=== PATIENT | male | born 1955 | race Caucasian/White ===

== ENCOUNTER 2018-02-14 20:37 | Emergency (ER) | payer MEDICARE, MEDICAID ==
[2018-02-15 00:17] LABS: URINE PH (Dip) POC 6.5 (5.0-8.5)
[2018-02-15 00:17] LABS: URINE BLOOD (Dip) POC Negative (NEGATIVE); URINE GLUCOSE (Dip) POC Negative (NEGATIVE); URINE KETONES (Dip) POC Negative (NEGATIVE); URINE LEUKOCYTE EST (Dip) POC Negative (NEGATIVE); URINE NITRITE (Dip) POC Negative (NEGATIVE); URINE TOTAL PROTEIN POC Negative (NEGATIVE)
[2018-02-15 00:35] LABS: ADD UMIC NO; UR ASCORBIC ACID 40 mg/dL (NEGATIVE); UR BILIRUBIN (Dip) NEGATIVE (NEGATIVE); UR BLOOD (Dip) NEGATIVE (NEGATIVE); UR CLARITY CLEAR (CLEAR); UR COLOR YELLOW (YELLOW); UR GLUCOSE (Dip) NEGATIVE (NEGATIVE); UR KETONES (Dip) NEGATIVE (NEGATIVE); UR LEUKOCYTE ESTERASE (Dip) NEGATIVE Leu/ul (NEGATIVE); UR NITRITE (Dip) NEGATIVE (NEGATIVE); UR TOTAL PROTEIN (Dip) NEGATIVE (NEGATIVE); UR UROBILINOGEN (Dip) NEGATIVE (NEGATIVE)
== END 2018-02-15 03:32 | disposition home or self-care (01) ==
LOC: E/R 02-15 03:32
DX: R60.0 Localized edema (principal); I10 Essential (primary) hypertension; R40.2142 Coma scale, eyes open, spontaneous, at arrival to emergency department; R40.2252 Coma scale, best verbal response, oriented, at arrival to emergency department; R40.2362 Coma scale, best motor response, obeys commands, at arrival to emergency department
CPT/HCPCS: 81003; 87086; 93970; 99284-25

== ENCOUNTER 2018-02-26 16:55 | Inpatient (IN) | payer MEDICARE, MEDICAID ==
[2018-02-26] MEDS: SOD CHLORIDE 0.9% 500 ML IV (20:03)
[2018-02-26 20:30] LABS: ADD MAN DIFF? NO
[2018-02-26 20:33] LABS: BASOPHIL # 0.1 10^3/ul (0.0-0.1); BASOPHILS % 0.7 % (0.0-2.0); EOSINOPHILS # 0.2 10^3/ul (0.0-0.5); EOSINOPHILS % 1.9 % (0.0-7.0); HEMOGLOBIN 14.8 g/dl (14.0-18.0); LYMPHOCYTES # 1.5 10^3/ul (0.8-2.9); MEAN CORPUSCULAR HGB CONC 32.9 g/dl (32.0-37.0); MEAN CORPUSCULAR VOLUME 91.3 fl (82.0-101.0); MEAN PLATELET VOLUME 9.3 fl (7.4-10.4); MONOCYTE # 0.7 10^3/ul (0.3-0.9); MONOCYTES % 7.7 % (0.0-11.0); NEUTROPHIL # 6.4 10^3/ul (1.6-7.5); NEUTROPHILS % 72.4 % (39.0-77.0); PLATELET COUNT 243 10^3/UL (140-415); RED BLOOD COUNT 4.93 10^6/ul (4.70-6.10); RED CELL DISTRIBUTION WIDTH 14.1 % (11.5-14.5)
[2018-02-26 20:33] LABS: WHITE BLOOD COUNT 8.8 10^3/ul (4.8-10.8)
[2018-02-26 20:52] LABS: INR 1.04; PROTIME 13.7 Sec (11.9-14.9); PT RATIO 1.1
[2018-02-26 20:53] LABS: ANION GAP 17 (8-16); BLOOD UREA NITROGEN 18 mg/dl (7-20); CALCIUM 9.8 mg/dl (8.4-10.2); CARBON DIOXIDE 28 mmol/L (21-31); CHLORIDE 103 mmol/L (97-110); CREATINE KINASE 118 IU/L (23-200); CREATININE 1.11 mg/dl (0.61-1.24); GLUCOSE 127 mg/dl (70-220); POTASSIUM 4.6 mmol/L (3.5-5.1); SODIUM 143 mmol/L (135-144)
[2018-02-26] MEDS ORDERED: APIXABAN 5 MG TABLET PO (21:00)
[2018-02-26 21:09] LABS: TROPONIN-I < 0.012 ng/ml (0.00-0.12)
[2018-02-26] MEDS: APIXABAN 5 MG TABLET PO (22:44)
[2018-02-26] MEDS ORDERED: ACETAMINOPHEN 325 MG TAB PO (23:00)
[2018-02-26] MEDS ORDERED: ONDANSETRON 4 MG INJ IV (23:00)
[2018-02-27] MEDS ORDERED: ONDANSETRON 4 MG INJ IV (01:00)
[2018-02-27] MEDS ORDERED: morphine 2 MG INJ IV (01:00)
[2018-02-27 05:03] LABS: ADD MAN DIFF? NO
[2018-02-27 05:05] LABS: BASOPHILS % 0.6 % (0.0-2.0); EOSINOPHILS # 0.2 10^3/ul (0.0-0.5); EOSINOPHILS % 2.9 % (0.0-7.0); HEMATOCRIT 38.4 % (42.0-52.0); HEMOGLOBIN 12.7 g/dl (14.0-18.0); LYMPHOCYTES # 1.4 10^3/ul (0.8-2.9); LYMPHOCYTES % 22.6 % (15.0-51.0); MEAN CORPUSCULAR HEMOGLOBIN 30.2 pg (29.0-33.0); MEAN CORPUSCULAR HGB CONC 33.1 g/dl (32.0-37.0); MEAN CORPUSCULAR VOLUME 91.4 fl (82.0-101.0); MEAN PLATELET VOLUME 9.1 fl (7.4-10.4); MONOCYTE # 0.6 10^3/ul (0.3-0.9); MONOCYTES % 10.2 % (0.0-11.0); NEUTROPHIL # 3.9 10^3/ul (1.6-7.5); NEUTROPHILS % 63.2 % (39.0-77.0); PLATELET COUNT 211 10^3/UL (140-415)
[2018-02-27 05:05] LABS: WHITE BLOOD COUNT 6.2 10^3/ul (4.8-10.8)
[2018-02-27 05:21] LABS: HEMOGLOBIN A1C 5.6 % (0-5.9)
[2018-02-27 05:36] LABS: ANION GAP 11 (8-16); BLOOD UREA NITROGEN 17 mg/dl (7-20); CALCIUM 9.1 mg/dl (8.4-10.2); CARBON DIOXIDE 30 mmol/L (21-31); CHLORIDE 107 mmol/L (97-110); CHOL/HDL RATIO 3.9 RATIO; CHOLESTEROL 129 mg/dl (100-200); CREATININE 1.06 mg/dl (0.61-1.24); GLUCOSE 110 mg/dl (70-220); HDL CHOLESTEROL 33 mg/dl (30-78); LDL CHOLESTEROL,CALCULATED 66 mg/dl; MAGNESIUM 1.8 mg/dl (1.7-2.5); PHOSPHORUS 4.2 mg/dl (2.5-4.9); POTASSIUM 3.8 mmol/L (3.5-5.1); SODIUM 144 mmol/L (135-144); TRIGLYCERIDES 152 mg/dl (0-149)
[2018-02-27] MEDS: SOD CHLORIDE 0.9% 100 ML (08:24)
[2018-02-27] MEDS: IOHEXOL 100 ML (08:24)
[2018-02-27] MEDS: OXYBUTYNIN 5 MG TAB PO (09:29)
[2018-02-27] MEDS: LEVETIRACETAM 500 MG TAB PO ×2 (09:29→21:03)
[2018-02-27] MEDS: ASPIRIN (EC) 81 MG TAB PO (09:30)
[2018-02-27] MEDS: RIVAROXABAN 20 MG TABLET PO (18:03)
[2018-02-27] MEDS: ATORVASTATIN 40 MG TAB PO (21:03)
[2018-02-27] MEDS: SERTRALINE 100 MG TAB PO (21:03)
[2018-02-27] MEDS: MIRTAZAPINE 15 MG TAB PO (21:03)
[2018-02-28] MEDS: IOHEXOL 14.3 MG(I)/ML (ADULT) BTL PO (08:09)
[2018-02-28] MEDS: ASPIRIN (EC) 81 MG TAB PO (09:05)
[2018-02-28] MEDS: LEVETIRACETAM 500 MG TAB PO ×2 (09:05→20:29)
[2018-02-28] MEDS: OXYBUTYNIN 5 MG TAB PO (09:05)
[2018-02-28] MEDS: IOHEXOL 300MG/ML 150 ML BTL (10:10)
[2018-02-28] MEDS: SOD CHLORIDE 0.9% 100 ML (10:10)
[2018-02-28 10:38] LABS: ADD UMIC NO; UR ASCORBIC ACID NEGATIVE (NEGATIVE); UR BILIRUBIN (Dip) NEGATIVE (NEGATIVE); UR BLOOD (Dip) NEGATIVE (NEGATIVE); UR CLARITY CLEAR (CLEAR); UR COLOR STRAW (YELLOW); UR GLUCOSE (Dip) NEGATIVE (NEGATIVE); UR KETONES (Dip) NEGATIVE (NEGATIVE); UR LEUKOCYTE ESTERASE (Dip) NEGATIVE Leu/ul (NEGATIVE); UR NITRITE (Dip) NEGATIVE (NEGATIVE); UR SPECIFIC GRAVITY (Dip) 1.008 (1.003-1.030); UR TOTAL PROTEIN (Dip) NEGATIVE (NEGATIVE); UR UROBILINOGEN (Dip) NEGATIVE (NEGATIVE)
[2018-02-28] MEDS: RIVAROXABAN 20 MG TABLET PO (17:51)
[2018-02-28] MEDS: SERTRALINE 100 MG TAB PO (20:29)
[2018-02-28] MEDS: ATORVASTATIN 40 MG TAB PO (20:29)
[2018-02-28] MEDS: MIRTAZAPINE 15 MG TAB PO (20:30)
[2018-03-01 05:17] LABS: ADD MAN DIFF? NO
[2018-03-01 05:32] LABS: BASOPHILS % 0.7 % (0.0-2.0); EOSINOPHILS # 0.3 10^3/ul (0.0-0.5); EOSINOPHILS % 4.6 % (0.0-7.0); HEMATOCRIT 39.8 % (42.0-52.0); HEMOGLOBIN 13.1 g/dl (14.0-18.0); LYMPHOCYTES # 1.4 10^3/ul (0.8-2.9); LYMPHOCYTES % 24.1 % (15.0-51.0); MEAN CORPUSCULAR HGB CONC 32.9 g/dl (32.0-37.0); MEAN CORPUSCULAR VOLUME 91.3 fl (82.0-101.0); MONOCYTE # 0.6 10^3/ul (0.3-0.9); NEUTROPHIL # 3.3 10^3/ul (1.6-7.5); NEUTROPHILS % 59.1 % (39.0-77.0); PLATELET COUNT 257 10^3/UL (140-415); RED BLOOD COUNT 4.36 10^6/ul (4.70-6.10); RED CELL DISTRIBUTION WIDTH 13.6 % (11.5-14.5)
[2018-03-01 05:32] LABS: WHITE BLOOD COUNT 5.7 10^3/ul (4.8-10.8)
[2018-03-01 05:45] LABS: ALANINE AMINOTRANSFERASE 22 IU/L (13-69); ALBUMIN 3.7 g/dl (3.3-4.9); ALBUMIN/GLOBULIN RATIO 1.19; ALKALINE PHOSPHATASE 49 IU/L (42-121); ANION GAP 10 (8-16); ASPARTATE AMINO TRANSFERASE 19 IU/L (15-46); BILIRUBIN,INDIRECT 0.4 mg/dl (0-1.1); BILIRUBIN,TOTAL 0.4 mg/dl (0.2-1.3); BLOOD UREA NITROGEN 13 mg/dl (7-20); CALCIUM 8.9 mg/dl (8.4-10.2); CARBON DIOXIDE 33 mmol/L (21-31); CHLORIDE 105 mmol/L (97-110); CREATININE 0.92 mg/dl (0.61-1.24); GLUCOSE 109 mg/dl (70-220); SODIUM 144 mmol/L (135-144); TOTAL PROTEIN 6.8 g/dl (6.1-8.1)
[2018-03-01] MEDS: ASPIRIN (EC) 81 MG TAB PO (08:54)
[2018-03-01] MEDS: LEVETIRACETAM 500 MG TAB PO ×2 (08:54→20:47)
[2018-03-01] MEDS: OXYBUTYNIN 5 MG TAB PO (08:54)
[2018-03-01] MEDS: RIVAROXABAN 20 MG TABLET PO (17:55)
[2018-03-01] MEDS: SERTRALINE 100 MG TAB PO (20:47)
[2018-03-01] MEDS: ATORVASTATIN 40 MG TAB PO (20:48)
[2018-03-01] MEDS: MIRTAZAPINE 15 MG TAB PO (20:48)
[2018-03-02] MEDS: OXYBUTYNIN 5 MG TAB PO (08:25)
[2018-03-02] MEDS: LEVETIRACETAM 500 MG TAB PO ×2 (08:26→21:05)
[2018-03-02] MEDS: ASPIRIN (EC) 81 MG TAB PO (08:26)
[2018-03-02] MEDS: RIVAROXABAN 20 MG TABLET PO (17:24)
[2018-03-02] MEDS: SERTRALINE 100 MG TAB PO (21:05)
[2018-03-02] MEDS: MIRTAZAPINE 15 MG TAB PO (21:06)
[2018-03-02] MEDS: ATORVASTATIN 40 MG TAB PO (21:06)
[2018-03-03] MEDS: LEVETIRACETAM 500 MG TAB PO ×2 (08:25→21:06)
[2018-03-03] MEDS: OXYBUTYNIN 5 MG TAB PO (08:26)
[2018-03-03] MEDS: ASPIRIN (EC) 81 MG TAB PO (08:26)
[2018-03-03] MEDS ORDERED: morphine LIQ (10 MG/5 ML) CUP PO (17:30)
[2018-03-03] MEDS: RIVAROXABAN 20 MG TABLET PO (17:31)
[2018-03-03 19:07] LABS: PSA, FREE 0.3 ng/mL
[2018-03-03] MEDS: ATORVASTATIN 40 MG TAB PO (21:06)
[2018-03-03] MEDS: SERTRALINE 100 MG TAB PO (21:06)
[2018-03-03] MEDS: MIRTAZAPINE 15 MG TAB PO (21:06)
[2018-03-04] MEDS: OXYBUTYNIN 5 MG TAB PO (09:03)
[2018-03-04] MEDS: LEVETIRACETAM 500 MG TAB PO (09:04)
== END 2018-03-04 14:41 | disposition home or self-care (01) | DRG 299 ==
LOC: MS1 22:47 → E/R 16:55
DX: I82.411 Acute embolism and thrombosis of right femoral vein (principal); G93.40 Encephalopathy, unspecified; F32.9 Major depressive disorder, single episode, unspecified; G40.909 Epilepsy, unspecified, not intractable, without status epilepticus; K80.20 Calculus of gallbladder without cholecystitis without obstruction; Z86.73 Personal history of transient ischemic attack (TIA), and cerebral infarction without residual deficits; Z79.82 Long term (current) use of aspirin; Z79.02 Long term (current) use of antithrombotics/antiplatelets
CPT/HCPCS: 36415; 70450; 70551; 71045; 71275; 74177; 80048; 80053; 80061; 81003; 82550; 83036; 83735; 84100; 84153; 84154; 84484; 85025; 85610; 85730; 93005; 93306; 93971; 97116; 97162; 99285-25